=== PATIENT | female | born 1985 | race Caucasian/White ===

== ENCOUNTER 2019-09-04 08:05 | Inpatient (IN) | payer BC ==
[2019-09-04 09:33] VITALS: BMI 31.0
[2019-09-04] MEDS ORDERED: ONDANSETRON 4 MG/2 ML VIAL IVPUSH PRN (09:44)
[2019-09-04] MEDS ORDERED: OXYTOCIN 10 UNITS/ML VIAL ONE (10:48)
[2019-09-04] MEDS ORDERED: METHYLERGONOVINE MALEATE 0.2 MG/1 ML AMP IM PRN (11:41)
[2019-09-04] MEDS ORDERED: oxyCODONE HCL 5 MG TABLET PO PRN (11:41)
[2019-09-04] MEDS ORDERED: ELECTROLYTE-148 SOLN 1,000 ML IV SCH (11:45)
[2019-09-04] MEDS ORDERED: OXYTOCIN 20 UNITS in 0.9% NS 1000 ML INFUS.BAG IV ONE (11:48)
[2019-09-04] MEDS ORDERED: KETOROLAC TROMETHAMINE 30 MG/1 ML VIAL IVPUSH PRN (11:51)
[2019-09-04] MEDS ORDERED: OXYTOCIN 20 UNITS in 0.9% NS 20 UNIT/1,000 ML INFUS.BAG IV SCH (12:00)
[2019-09-04] MEDS ORDERED: OXYTOCIN 20 UNITS in 0.9% NS 20 UNIT/1,000 ML INFUS.BAG IV ONE (12:48)
[2019-09-04] MEDS: ACETAMINOPHEN 1000 MG/100 ML VIAL (NON FORMULARY) IVPB PRN ×2 (16:07→22:09)
[2019-09-04] MEDS ORDERED: CEFAZOLIN 1 GM in DEXTROSE 5%-WATER - 50 ML IVPB SCH (18:00)
[2019-09-04] MEDS: CEFAZOLIN 1 GM/D5W 1 GM/50 ML BAG IVPB SCH (18:45)
[2019-09-04] MEDS: SIMETHICONE 80 MG TAB.CHEW (FP) PO PRN (22:10)
[2019-09-05] MEDS: CEFAZOLIN 1 GM/D5W 1 GM/50 ML BAG IVPB SCH ×2 (02:13→10:17)
[2019-09-05] MEDS: IBUPROFEN 600 MG TABLET (FP) PO PRN ×5 (03:01→22:59)
[2019-09-05] MEDS: SIMETHICONE 80 MG TAB.CHEW (FP) PO PRN ×5 (03:05→22:59)
[2019-09-05] MEDS: ACETAMINOPHEN 325 MG TABLET (FP) PO PRN ×5 (03:05→22:58)
[2019-09-05 08:50] LABS: BASO % 0.3 % (0-2.0); EOS % 0.5 % (0-4.5); HEMATOCRIT 30.8 % (32.4-45.2); HEMOGLOBIN 10.3 GM/dL (10.7-15.3); LYMPH % 21.5 % (8-40); MCH 30.2 pg (25.7-33.7); MCHC 33.4 g/dl (32.0-36.0); MEAN CELL VOLUME 90.2 fl (80-96); MEAN PLT VOLUME 8.9 fl (7.5-11.1); MONO % 6.4 % (3.8-10.2); NEUT % 71.3 % (42.8-82.8); PLATELET COUNT 215 K/MM3 (134-434); RBC 3.41 M/mm3 (3.60-5.2); RDW 13.2 % (11.6-15.6)
[2019-09-05] MEDS ORDERED: BISACODYL 10 MG SUPP.RECT RC PRN (11:41)
[2019-09-06] MEDS: IBUPROFEN 600 MG TABLET (FP) PO PRN ×3 (03:37→12:03)
[2019-09-06] MEDS: ACETAMINOPHEN 325 MG TABLET (FP) PO PRN ×3 (03:37→12:02)
[2019-09-06] MEDS: SIMETHICONE 80 MG TAB.CHEW (FP) PO PRN ×2 (03:37→08:02)
[2019-09-06 09:30] VITALS: BP 122/70; PULSE 82; TEMP 97.9
[2019-09-06] MEDS ORDERED: PRENATAL VITAMINS W/ FOLIC ACID TABLET (FP) PO SCH (11:45)
== END 2019-09-06 12:10 | disposition home or self-care (01) | DRG 788 ==
LOC: JLDR 08:05 → J3W 13:32
PROVIDERS: ADMIT Specialist; ATTEND Specialist
PROC: 10D00Z1 Extraction of Products of Conception, Low, Open Approach (ICD-10-PCS; principal; 2019-09-04)
DX: O36.5930 Maternal care for other known or suspected poor fetal growth, third trimester, not applicable or unspecified (principal); O34.211 Maternal care for low transverse scar from previous cesarean delivery; Z3A.38 38 weeks gestation of pregnancy; Z37.0 Single live birth
CPT/HCPCS: 36415; 85025; 88304-TC; 88307-TC; J0131

== ENCOUNTER 2022-01-09 08:15 | Inpatient (IN) | payer BC ==
[2022-01-09 09:16] VITALS: BMI 30.4
[2022-01-09] MEDS ORDERED: morphine SULFATE/PF 1 MG/2 ML (2cc Syringe - QUVA) ONE (10:25)
[2022-01-09] MEDS ORDERED: ceFAZolin SODIUM 1 GM VIAL ONE (10:26)
[2022-01-09] MEDS ORDERED: ONDANSETRON 4 MG/2 ML VIAL ONE (10:26)
[2022-01-09] MEDS ORDERED: PHENYLEPHRINE HCL 10 MG/1 ML SINGLE DOSE VIAL ONE (10:26)
[2022-01-09] MEDS ORDERED: SODIUM CHLORIDE 0.9% P/F 10 ML VIAL IJ ONE (10:27)
[2022-01-09] MEDS ORDERED: ePHEDrine SULFATE 50 MG/1 ML AMPULE ONE ×3 (11:14→11:19)
[2022-01-09] MEDS ORDERED: DEXAMETHASONE SOD PHOSPHATE 4 MG/1 ML VIAL ONE (11:15)
[2022-01-09] MEDS ORDERED: OXYTOCIN 10 UNITS/ML VIAL ONE ×2 (11:24→11:51)
[2022-01-09] MEDS ORDERED: ONDANSETRON 4 MG/2 ML VIAL IVPB PRN (12:32)
[2022-01-09] MEDS ORDERED: SENNOSIDES/DOCUSATE COMBO (SENNA PLUS) TABLET (UD) PO PRN (12:32)
[2022-01-09] MEDS ORDERED: oxyCODONE HCL 5 MG TABLET PO PRN (12:32)
[2022-01-09] MEDS ORDERED: ACETAMINOPHEN 1000 MG/100 ML BAG IVPB PRN (12:32)
[2022-01-09] MEDS ORDERED: ONDANSETRON 4 MG/2 ML VIAL IVPUSH PRN (12:33)
[2022-01-09] MEDS ORDERED: OXYTOCIN 20 UNITS in 0.9% NS 20 UNIT/1,000 ML INFUS.BAG IV SCH (12:45)
[2022-01-09] MEDS ORDERED: LACTATED RINGERS SOLUTION 1,000 ML IV SCH (12:45)
[2022-01-09] MEDS ORDERED: CITRIC ACID/SODIUM CITRATE 30 ML UNIT-DOSE CUP PO ONE (13:44)
[2022-01-09] MEDS ORDERED: ELECTROLYTE-148 SOLN 500 ML IV ONE (13:44)
[2022-01-09] MEDS: IBUPROFEN 800 MG/8 ML IJ IVPB PRN ×2 (14:28→23:38)
[2022-01-09] MEDS: CEFAZOLIN SODIUM 2 GM in DEXTROSE 5%-WATER 100 ML IVPB SCH (17:24)
[2022-01-09] MEDS ORDERED: CEFAZOLIN 2 GM in DEXTROSE 5%-WATER - 50 ML IVPB SCH (18:00)
[2022-01-09] MEDS: SIMETHICONE 80 MG TAB.CHEW (FP) PO PRN (20:26)
[2022-01-10] MEDS: SIMETHICONE 80 MG TAB.CHEW (FP) PO PRN ×4 (01:06→22:30)
[2022-01-10] MEDS: CEFAZOLIN SODIUM 2 GM in DEXTROSE 5%-WATER 100 ML IVPB SCH (01:06)
[2022-01-10 07:55] LABS: BASO % 0.1 % (0-2.0); EOS % 0.4 % (0-4.5); HEMATOCRIT 28.9 % (32.4-45.2); HEMOGLOBIN 9.7 GM/dL (10.7-15.3); LYMPH % 20.2 % (8-40); MCH 29.3 pg (25.7-33.7); MCHC 33.4 g/dl (32.0-36.0); MEAN CELL VOLUME 87.7 fl (80-96); MEAN PLT VOLUME 8.8 fl (7.5-11.1); MONO % 9.3 % (3.8-10.2); PLATELET COUNT 211 10^3/uL (134-434); RDW 12.7 % (11.6-15.6)
[2022-01-10] MEDS: IBUPROFEN 800 MG/8 ML IJ IVPB PRN (08:04)
[2022-01-10] MEDS ORDERED: BISACODYL 10 MG SUPP.RECT RC PRN (12:32)
[2022-01-10] MEDS: IBUPROFEN 600 MG TABLET (FP) PO PRN ×4 (12:40→22:31)
[2022-01-10 14:39] VITALS: RESP 18
[2022-01-10] MEDS: ACETAMINOPHEN 325 MG TABLET (FP) PO PRN ×2 (16:34→19:31)
[2022-01-10] MEDS ORDERED: ACETAMINOPHEN 325 MG TABLET (FP) PO PRN (20:44)
[2022-01-10] MEDS ORDERED: ACETAMINOPHEN 325 MG TABLET (FP) PO ONE (20:45)
[2022-01-11] MEDS: SIMETHICONE 80 MG TAB.CHEW (FP) PO PRN ×2 (02:20→06:29)
[2022-01-11] MEDS: IBUPROFEN 600 MG TABLET (FP) PO PRN ×2 (02:21→06:30)
[2022-01-11] MEDS: ACETAMINOPHEN 325 MG TABLET (FP) PO PRN ×2 (02:21→06:29)
[2022-01-11 08:50] VITALS: BP 123/75; PULSE 80; TEMP 98.2
== END 2022-01-11 10:11 | disposition home or self-care (01) | DRG 785 ==
LOC: JLDR 08:15 → J3W 14:15
PROVIDERS: ADMIT Specialist; ATTEND Specialist
PROC: 10D00Z1 Extraction of Products of Conception, Low, Open Approach (ICD-10-PCS; principal; 2022-01-09)
PROC: 0UT70ZZ Resection of Bilateral Fallopian Tubes, Open Approach (ICD-10-PCS; 2022-01-09)
DX: O34.211 Maternal care for low transverse scar from previous cesarean delivery (principal); Z30.2 Encounter for sterilization; Z37.0 Single live birth; Z3A.39 39 weeks gestation of pregnancy
CPT/HCPCS: 36415; 85025; 88304-TC; 88305-TC; 88307-TC